=== PATIENT | male | born 1940 | race Caucasian/White ===

== ENCOUNTER 2019-12-03 12:37 | Inpatient (IN) | payer MEDICARE ==
[~2019-12-03] VITALS: Ht 165.1 cm; Wt 81.7 kg
[2019-12-03 12:37] VITALS: BP 160/61
[~2019-12-03 12:37] MED LIST: CAPOTEN50 MG; FLEXERIL10 MG PO; HYDROCODONE BIT1 T11 PO; KEFLEX500 MG PO; LOPRESSOR50 MG; LOVASTATIN20 MG; METFORMIN1000 MG; NOVOLIN 701 UNIT/0.0; [UNRECOGNIZED DRUG - OTHER]
--- NOTE | 2019-12-03 12:48 | NUR ---
PLACED ON 50% VENTURI MASK. WILL CONTINUE TO MONITOR.
[2019-12-03 12:55] LABS: ABG BASE EXCESS -1.4 mmol/L (-2.0-2.0); ARTERIAL BLOOD GAS PH 7.336 (7.35-7.45)
[2019-12-03 13:11] VITALS: BP 135/56
[2019-12-03 13:11] LABS: BASO # 0.1 10*3/uL (0.0-0.1); BASO % 0.7 % (0.0-1.0); EOS # 0.5 10*3/uL (0.0-0.4); EOS % 5.2 % (1.0-4.0); HEMATOCRIT 34.2 % (42.0-52.0); HEMOGLOBIN 10.3 g/dl (14.0-18.0); LYMPH # 0.6 10*3/uL (1.3-4.4); LYMPH % 6.6 % (27.0-41.0); MEAN CELL VOLUME 97.2 fl (80.0-94.0); MEAN CORPUSCULAR HGB 29.3 pg (27.0-31.0); MEAN CORPUSCULAR HGB CONC 30.1 g/dl (33.0-37.0); MEAN PLATELET VOLUME 10.6 fl (9.6-12.3); MONO # 0.5 10*3/uL (0.1-1.0); MONO % 5.6 % (3.0-9.0); NEUT # 7.9 10*3/uL (2.3-7.9); NEUT % 81.4 % (47.0-73.0); PLATELET COUNT AUTOMATED 265 10*3/uL (130-400); RED BLOOD COUNT 3.52 10*6/uL (4.50-5.90); RED CELL DISTRI WIDTH 13.9 % (0-14.5); WHITE BLOOD COUNT 9.7 10*3/uL (4.8-10.8)
--- NOTE | 2019-12-03 13:11 | NUR ---
RESTING IN NO DISTRESS. TOLERATING VENTURI MASK WELL. POX 95-96% A THIS TIME.
[2019-12-03 13:22] LABS: ACT PARTIAL THROMBO TIME 27.6 SECONDS (20.0-32.1)
[2019-12-03 13:28] LABS: ALBUMIN 3.3 gm/dl (3.1-4.5); CREATININE 1.86 mg/dL (0.70-1.30); POTASSIUM 5.9 mmol/L (3.5-5.1); TOTAL PROTEIN 6.9 gm/dL (6.4-8.2)
[2019-12-03 13:30] LABS: TROPONIN I 0.019 ng/ml (<0.045)
[2019-12-03 13:59] VITALS: BP 121/56
--- NOTE | 2019-12-03 14:01 | NUR ---
PARTIAL AMPUTATION TO LT FOOT. SEES WOUND CARE IN [place]. PT PREFERS DRESSING NOT BE REMOVED AT THIS TIME HE HAS AN "EXPENSIVE OINTMENT" THAT NEEDS TO BE APPLIED. STATES HIS DAUGHTER WOULD KNOW THE NAME OF THE MED.
[2019-12-03 15:00] VITALS: BP 139/63
--- NOTE | 2019-12-03 15:00 | NUR ---
Time: 1500 A 79 year old MALE admitted to 4E under services of TORY VAZQUEZ DO. Pt. arrived via bed from ER. Chief complaint: ACUTE RESPIRATORY FAILURE. PATIENT ORIENTED TO THE FLOOR 4E, PUBLIC BATH ATTENDANT APPLIED. PATIENT FORMS REVIEWED AND COMPLETED. CALL LIGHT SYSTEM DEMONSTRATED. ORDERS RECEIVED FROM DR. KANG. NOTIFIED THAT MED REC IS UP-TO-DATE. [place]
--- NOTE | 2019-12-03 15:17 | NUR ---
EVON SALAZAR [id number] Please refer to the physician's history and physical for past medical history, comorbid conditions, and allergies. Diagnosis: CHF ACUTE RESPIRATORY FAILURE WITH HYPOXIA AND Koko Score: , WOUND DESCRIPTIONS: Wound Number: 1 Location of the wound: LEFT DISTAL FOOT Type of wound: SURGICAL Thickness: Partial Size: 1.5cm X 3.5cm X 0.1cm Tunneling: NONE Undermining: NONE Sinus Tract: NONE Presence of Exudate: Serous Amount: Light Color: Red Odor: None Periwound Skin Appearance: Scar Wound edges: APPROXIMATED Pain (associated with wound): DENIED AT TIME OF ASSESSMENT How does patient state this happened? PATIENT STATES THAT HE HAS ALL TOES REMOVED FOUR MONTHS AGO BY [facility] IN [place]. PATIENT STATES THAT HE HAS AN APPOINTMENT 12/08/19 IN THE [place] OFFICE. PATIENT ALSO STATES THAT HE HAS [employer]. PATIENT STATES THAT HE HAS BEEN USING AN "OINTMENT" TO THE WOUND BUT UNSURE OF THE NAME. PATIENT STATES HE WILL ASK HIS DAUGHTER AND TELL THE NURSE CARING FOR HIM. If wound is on legs/feet or hands, capillary refill time, pulses, color temp, sensation: CAP REFILL < 3 SECONDS. PATIENT DENIED ANY OTHER OPEN WOUNDS AT TIME OF ASSESSMENT. Surface the patient is resting on: Isoflex SKIN PREVENTION RECOMMENDATION: 1. Pressure redistribution support surface as appropriate 2. Elevate heels 3. Remove boots/TEDS every shift and reapply 4. Head of bed 30 degrees as tolerated 5. Assess nutrition and hydration 6. Manage moisture 7. Avoid the use of containment devices while in bed 8. Use absorptive products on surfaces limit layers of linens on bed 9. Turn and reposition every 1-2 hours in bed and every 1 hour in chair as tolerated 10. Weight shifts every 15 minutes while up in chair 11. Offloading with pillows or device to keep heels elevated off bed 12. Monitor skin at least every shift 13. Inspect under medical devices twice a day WOUND TREATMENT RECOMMENDATIONS: DRESSING CHANGE: CLEANSES LEFT DISTAL FOOT WITH NSS APPLY SUREPREP AROUND THE WOUND ALLOW TO DRY APPLY ADAPTIC TO WOUND BED AND COVER WITH A DSD. CHANGE DAILY AND PRN SOILING. PATIENT TO FOLLOW UP WITH [facility] IN [place] 12/08/19. PATIENT REFUSED TO HAVE PODIATRY SEE HIM WHILE IN THE HOSPITAL.
--- NOTE | 2019-12-03 15:49 | NUR ---
MESSAGE FOR NEW CARDIOLOGY CONSULT GIVEN TO MOISÉS. PATIENT INFORMATION REVIEWED.
--- NOTE | 2019-12-03 15:50 | NUR ---
DR. GUERRERO NOTIFIED OF CONSULT. ORDERS RECEIVED. BIPAP WILL REMAIN ON CURRENT SETTINGS.
[2019-12-03 16:00] VITALS: BP 139/69
[2019-12-03 17:28] LABS: BILIRUBIN NEGATIVE (NEGATIVE); BLOOD 1+ (NEGATIVE); CLARITY CLEAR (CLEAR); COLOR YELLOW (YELLOW); GLUCOSE NEGATIVE (NEGATIVE); KETONE NEGATIVE (NEGATIVE); LEUKO ESTERASE NEGATIVE (NEGATIVE); NITRITE NEGATIVE (NEGATIVE); SPECIFIC GRAVITY 1.025 (1.005-1.030); UROBILINOGEN 0.2 E.U./dl (0.2-1.0)
[2019-12-03 17:31] LABS: ABG BASE EXCESS -0.5 mmol/L (-2.0-2.0); ARTERIAL BLOOD GAS PH 7.35 (7.35-7.45)
[2019-12-03 17:36] LABS: BACTERIA 1+; RBC 31-40 rbc/hpf (0-2)
[2019-12-03 19:02] LABS: CREATININE 1.79 mg/dL (0.70-1.30); POTASSIUM 5.4 mmol/L (3.5-5.1)
[2019-12-03 20:00] VITALS: BP 128/53
--- NOTE | 2019-12-03 22:13 | NUR ---
Patient changed to large sized Bi-PAP mask due to improper fit.
[2019-12-04] VITALS: BP 126/54
[2019-12-04 07:09] LABS: BASO # 0.1 10*3/uL (0.0-0.1); BASO % 0.6 % (0.0-1.0); EOS # 0.6 10*3/uL (0.0-0.4); EOS % 6.2 % (1.0-4.0); HEMATOCRIT 32.2 % (42.0-52.0); HEMOGLOBIN 9.6 g/dl (14.0-18.0); LYMPH # 1.2 10*3/uL (1.3-4.4); LYMPH % 12.2 % (27.0-41.0); MEAN CELL VOLUME 96.4 fl (80.0-94.0); MEAN CORPUSCULAR HGB 28.7 pg (27.0-31.0); MEAN CORPUSCULAR HGB CONC 29.8 g/dl (33.0-37.0); MEAN PLATELET VOLUME 10.9 fl (9.6-12.3); MONO # 0.8 10*3/uL (0.1-1.0); MONO % 8.5 % (3.0-9.0); NEUT # 6.8 10*3/uL (2.3-7.9); NEUT % 72.3 % (47.0-73.0); PLATELET COUNT AUTOMATED 236 10*3/uL (130-400); RED BLOOD COUNT 3.34 10*6/uL (4.50-5.90); RED CELL DISTRI WIDTH 13.9 % (0-14.5); WHITE BLOOD COUNT 9.5 10*3/uL (4.8-10.8)
[2019-12-04 07:27] LABS: CREATININE 1.7 mg/dL (0.70-1.30); POTASSIUM 4.9 mmol/L (3.5-5.1)
[2019-12-04 07:32] LABS: PHOSPHOROUS 3.5 mg/dL (2.5-4.9)
[2019-12-04 07:40] LABS: THYROID STIM HORMONE (HS) 2.11 uIU/ml (0.358-4.75)
[2019-12-04 08:00] VITALS: BP 128/62
[2019-12-04 08:44] LABS: VITAMIN D, 25-HYDROXY 26.8 ng/mL (30-100)
--- NOTE | 2019-12-04 09:00 | NUR ---
[employer] in to talk to patient. Patient states lives at home with family. There are no steps in the home. Physician: rachel erickson Pharmacy: Home health services: none Patient's level of ADLs: INDEPENDENT Patient has working utilities: all working DME: none Follow-up physician's appointment after d/c: will be made by hospitalist nurse director upon discharge Does patient want to access PORTAL?: no Discharge plan discussed with patient, he lives at home, is independent in adls and ambulation, he states he will return home when medically stable and denies any home needs. JEFF GOULD
[2019-12-04 12:00] VITALS: BP 140/66
[2019-12-04] MEDS ORDERED: FUROSEMIDE10 MG/1 M1 IV (12:02)
--- NOTE | 2019-12-04 12:08 | NUR ---
PATIENT TO TRANSFER TO [facility]
--- NOTE | 2019-12-04 12:59 | NUR ---
PATIENT DAUGHTER AWARE OF TRANSFER.
--- NOTE | 2019-12-04 13:10 | NUR ---
NURSE TO NURSE REPORT GIVEN TO EMERY TERRAZAS AT [facility]. AMBULANCE TO NON PROFIT FINANCIAL CONTROLLER AT 1330.
--- NOTE | 2019-12-04 13:17 | NUR ---
Nursing screen received and chart reviewed. Patient being transfered to [facility] for further care. Morenita Saul OTR/l
--- NOTE | 2019-12-04 13:30 | NUR ---
PATIENT TRANSFERED VIA AMBULANCE.
--- NOTE | 2019-12-04 13:39 | NUR ---
PHYSICAL THERAPY Screen recieved per H&P pt for transfer to another facility, if status changes and pt has a decline functional status please consult PT Silvia Kaye PT
== END 2019-12-04 13:30 | disposition short-term general hospital (02) | DRG 189 ==
LOC: ED 12:37 → EDHOLD 13:59 → 4E 14:40
PROVIDERS: Emergency Medicine; Internal Medicine; Internal Medicine Critical Care Medicine; ADMIT Internal Medicine
PROC: 5A09357 Assistance with Respiratory Ventilation, Less than 24 Consecutive Hours, Continuous Positive Airway Pressure (ICD-10-PCS; principal; 2019-12-03)
DX: J96.02 Acute respiratory failure with hypercapnia (principal); N17.0 Acute kidney failure with tubular necrosis; I50.33 Acute on chronic diastolic (congestive) heart failure; I13.0 Hypertensive heart and chronic kidney disease with heart failure and stage 1 through stage 4 chronic kidney disease, or unspecified chronic kidney disease; E87.2 Acidosis; J96.01 Acute respiratory failure with hypoxia; N18.9 Chronic kidney disease, unspecified; E11.22 Type 2 diabetes mellitus with diabetic chronic kidney disease; E87.5 Hyperkalemia; E83.41 Hypermagnesemia; E11.65 Type 2 diabetes mellitus with hyperglycemia; E11.51 Type 2 diabetes mellitus with diabetic peripheral angiopathy without gangrene; D53.9 Nutritional anemia, unspecified; E87.8 Other disorders of electrolyte and fluid balance, not elsewhere classified; J44.9 Chronic obstructive pulmonary disease, unspecified; E66.9 Obesity, unspecified; I25.10 Atherosclerotic heart disease of native coronary artery without angina pectoris; I48.0 Paroxysmal atrial fibrillation; I35.0 Nonrheumatic aortic (valve) stenosis; Z68.30 Body mass index [BMI] 30.0-30.9, adult; Z99.81 Dependence on supplemental oxygen; Z79.4 Long term (current) use of insulin; Z79.82 Long term (current) use of aspirin; Z79.899 Other long term (current) drug therapy; Z98.42 Cataract extraction status, left eye; Z98.41 Cataract extraction status, right eye; Z89.411 Acquired absence of right great toe; Z82.49 Family history of ischemic heart disease and other diseases of the circulatory system; Z83.3 Family history of diabetes mellitus

== ENCOUNTER 2020-04-04 23:25 | Inpatient (IN) | payer MEDICARE ==
[~2020-04-04] VITALS: Ht 165.1 cm; Wt 72.3 kg
[~2020-04-04 23:25] MED LIST changes: +ASPIR 8181 MG PO; -CAPOTEN50 MG; +CAPOTEN50 MG PO; +FUROSEMIDE10 MG/1 M1 IV; -LOVASTATIN20 MG; +LOVASTATIN20 MG PO; +METFORMIN HYDR500 MG PO; -METFORMIN1000 MG; -NOVOLIN 701 UNIT/0.0; +NOVOLIN 70100 UNIT/1 SC; -[UNRECOGNIZED DRUG - OTHER]
[2020-04-04 23:29] VITALS: BP 147/81
[2020-04-04 23:49] LABS: BASO # 0.1 10*3/uL (0.0-0.1); BASO % 1.2 % (0.0-1.0); EOS # 0.3 10*3/uL (0.0-0.4); EOS % 2.6 % (1.0-4.0); HEMATOCRIT 34.4 % (42.0-52.0); LYMPH % 8.5 % (27.0-41.0); MEAN CELL VOLUME 95.8 fl (80.0-94.0); MEAN CORPUSCULAR HGB CONC 30.2 g/dl (33.0-37.0); MEAN PLATELET VOLUME 9.4 fl (9.6-12.3); MONO # 0.8 10*3/uL (0.1-1.0); MONO % 6.9 % (3.0-9.0); NEUT # 9.1 10*3/uL (2.3-7.9); NEUT % 80.4 % (47.0-73.0); PLATELET COUNT AUTOMATED 394 10*3/uL (130-400); RED BLOOD COUNT 3.59 10*6/uL (4.50-5.90); RED CELL DISTRI WIDTH 15.5 % (0-14.5); WHITE BLOOD COUNT 11.4 10*3/uL (4.8-10.8)
[2020-04-04 23:59] LABS: ACT PARTIAL THROMBO TIME 27.9 SECONDS (20.0-32.1)
[2020-04-05] VITALS (8 sets, daily range): BP systolic 113–147; BP diastolic 52–75
[2020-04-05 00:09] LABS: ALBUMIN 3.1 gm/dl (3.1-4.5); CREATININE 2.09 mg/dL (0.70-1.30); TOTAL PROTEIN 7.4 gm/dL (6.4-8.2)
[2020-04-05 00:13] LABS: TROPONIN I 0.432 ng/ml (<0.045)
[2020-04-05 02:14] LABS: ARTERIAL BLOOD GAS PH 7.348 (7.35-7.45)
[2020-04-05 06:29] LABS: BASO # 0.1 10*3/uL (0.0-0.1); BASO % 0.8 % (0.0-1.0); EOS # 0.1 10*3/uL (0.0-0.4); EOS % 0.7 % (1.0-4.0); HEMATOCRIT 30.9 % (42.0-52.0); LYMPH # 1.4 10*3/uL (1.3-4.4); LYMPH % 14.1 % (27.0-41.0); MEAN CELL VOLUME 93.6 fl (80.0-94.0); MEAN CORPUSCULAR HGB 29.4 pg (27.0-31.0); MEAN CORPUSCULAR HGB CONC 31.4 g/dl (33.0-37.0); MEAN PLATELET VOLUME 8.9 fl (9.6-12.3); MONO # 0.7 10*3/uL (0.1-1.0); MONO % 7.5 % (3.0-9.0); NEUT # 7.3 10*3/uL (2.3-7.9); NEUT % 76.5 % (47.0-73.0); PLATELET COUNT AUTOMATED 300 10*3/uL (130-400); RED CELL DISTRI WIDTH 15.5 % (0-14.5); WHITE BLOOD COUNT 9.6 10*3/uL (4.8-10.8)
[2020-04-05 06:59] LABS: CREATININE 1.88 mg/dL (0.70-1.30); POTASSIUM 4.7 mmol/L (3.5-5.1)
[2020-04-05 07:06] LABS: FREE T4 0.86 ng/dl (0.76-1.46); THYROID STIM HORMONE (HS) 1.5 uIU/ml (0.358-4.75)
[2020-04-05] MEDS ORDERED: HUMULIN 70/30 703 M1 SC (08:07)
[2020-04-05] MEDS ORDERED: NORVASC5 MG PO (08:08)
[2020-04-05] MEDS ORDERED: CARVEDILOL3.125 MG PO (08:09)
[2020-04-05] MEDS ORDERED: LASIX20 MG PO (08:09)
[2020-04-06] VITALS: BP 118/64
[2020-04-06 04:00] VITALS: BP 156/82
[2020-04-06 06:09] LABS: BASO # 0.1 10*3/uL (0.0-0.1); BASO % 0.7 % (0.0-1.0); EOS # 0.7 10*3/uL (0.0-0.4); EOS % 7.8 % (1.0-4.0); HEMATOCRIT 30.5 % (42.0-52.0); LYMPH # 1.3 10*3/uL (1.3-4.4); LYMPH % 14.2 % (27.0-41.0); MEAN CELL VOLUME 92.7 fl (80.0-94.0); MEAN CORPUSCULAR HGB 28.9 pg (27.0-31.0); MEAN CORPUSCULAR HGB CONC 31.1 g/dl (33.0-37.0); MEAN PLATELET VOLUME 9.5 fl (9.6-12.3); MONO # 0.8 10*3/uL (0.1-1.0); MONO % 8.8 % (3.0-9.0); NEUT # 6.2 10*3/uL (2.3-7.9); NEUT % 68.2 % (47.0-73.0); PLATELET COUNT AUTOMATED 317 10*3/uL (130-400); RED BLOOD COUNT 3.29 10*6/uL (4.50-5.90); RED CELL DISTRI WIDTH 15.5 % (0-14.5); WHITE BLOOD COUNT 9.1 10*3/uL (4.8-10.8)
[2020-04-06 06:27] LABS: CREATININE 1.61 mg/dL (0.70-1.30); POTASSIUM 4.3 mmol/L (3.5-5.1)
[2020-04-06 08:00] VITALS: BP 90/42
[2020-04-06 12:00] VITALS: BP 92/50
[2020-04-06 20:00] VITALS: BP 134/65
[2020-04-07] VITALS: BP 136/64
[2020-04-07 04:00] VITALS: BP 128/60
[2020-04-07 06:00] LABS: BASO # 0.1 10*3/uL (0.0-0.1); BASO % 0.8 % (0.0-1.0); EOS # 0.7 10*3/uL (0.0-0.4); EOS % 7.8 % (1.0-4.0); HEMATOCRIT 28.1 % (42.0-52.0); LYMPH # 1.3 10*3/uL (1.3-4.4); LYMPH % 15.7 % (27.0-41.0); MEAN CELL VOLUME 93.7 fl (80.0-94.0); MEAN CORPUSCULAR HGB 29.3 pg (27.0-31.0); MEAN CORPUSCULAR HGB CONC 31.3 g/dl (33.0-37.0); MEAN PLATELET VOLUME 9.7 fl (9.6-12.3); MONO # 0.9 10*3/uL (0.1-1.0); MONO % 10.9 % (3.0-9.0); NEUT # 5.5 10*3/uL (2.3-7.9); NEUT % 64.4 % (47.0-73.0); PLATELET COUNT AUTOMATED 285 10*3/uL (130-400); RED CELL DISTRI WIDTH 15.7 % (0-14.5); WHITE BLOOD COUNT 8.5 10*3/uL (4.8-10.8)
[2020-04-07 06:33] LABS: CREATININE 1.57 mg/dL (0.70-1.30); POTASSIUM 4.4 mmol/L (3.5-5.1)
[2020-04-07 08:00] VITALS: BP 132/65
[2020-04-07 12:00] VITALS: BP 118/62
[2020-04-07 16:00] VITALS: BP 105/64; BP 140/70
[2020-04-07 20:00] VITALS: BP 133/72
[2020-04-08] VITALS: BP 114/51
[2020-04-08 06:53] LABS: BASO # 0.1 10*3/uL (0.0-0.1); BASO % 0.7 % (0.0-1.0); EOS # 0.7 10*3/uL (0.0-0.4); EOS % 7.5 % (1.0-4.0); HEMATOCRIT 31.5 % (42.0-52.0); LYMPH # 1.5 10*3/uL (1.3-4.4); LYMPH % 16.9 % (27.0-41.0); MEAN CELL VOLUME 94.3 fl (80.0-94.0); MEAN CORPUSCULAR HGB 28.7 pg (27.0-31.0); MEAN CORPUSCULAR HGB CONC 30.5 g/dl (33.0-37.0); MEAN PLATELET VOLUME 9.8 fl (9.6-12.3); MONO % 11.3 % (3.0-9.0); NEUT # 5.5 10*3/uL (2.3-7.9); NEUT % 63.4 % (47.0-73.0); PLATELET COUNT AUTOMATED 283 10*3/uL (130-400); RED BLOOD COUNT 3.34 10*6/uL (4.50-5.90); RED CELL DISTRI WIDTH 15.4 % (0-14.5); WHITE BLOOD COUNT 8.7 10*3/uL (4.8-10.8)
[2020-04-08 07:25] LABS: CREATININE 1.41 mg/dL (0.70-1.30); POTASSIUM 4.2 mmol/L (3.5-5.1)
[2020-04-08 08:00] VITALS: BP 140/64
[2020-04-08 12:00] VITALS: BP 142/66
[2020-04-08] MEDS ORDERED: APRESOLINE10 MG PO (12:13)
[2020-04-08] MEDS ORDERED: Isordil20 MG PO (12:13)
== END 2020-04-08 15:10 | disposition home health service (06) | DRG 280 ==
LOC: ED 23:25 → ICCU 04-05 00:50 → EDHOLD 04-05 00:50 → ICCU 04-05 01:05 → 4E 04-07 14:47
PROVIDERS: Emergency Medicine; Internal Medicine; ADMIT Family Medicine
PROC: 5A09357 Assistance with Respiratory Ventilation, Less than 24 Consecutive Hours, Continuous Positive Airway Pressure (ICD-10-PCS; principal; 2020-04-05)
PROC: 5A09357 Assistance with Respiratory Ventilation, Less than 24 Consecutive Hours, Continuous Positive Airway Pressure (ICD-10-PCS; 2020-04-06)
PROC: 5A09357 Assistance with Respiratory Ventilation, Less than 24 Consecutive Hours, Continuous Positive Airway Pressure (ICD-10-PCS; 2020-04-07)
DX: I21.4 Non-ST elevation (NSTEMI) myocardial infarction (principal); N17.0 Acute kidney failure with tubular necrosis; J96.21 Acute and chronic respiratory failure with hypoxia; I50.43 Acute on chronic combined systolic (congestive) and diastolic (congestive) heart failure; I13.0 Hypertensive heart and chronic kidney disease with heart failure and stage 1 through stage 4 chronic kidney disease, or unspecified chronic kidney disease; R65.10 Systemic inflammatory response syndrome (SIRS) of non-infectious origin without acute organ dysfunction; I44.7 Left bundle-branch block, unspecified; E83.41 Hypermagnesemia; I44.0 Atrioventricular block, first degree; D53.9 Nutritional anemia, unspecified; I35.0 Nonrheumatic aortic (valve) stenosis; N18.3 Chronic kidney disease, stage 3 (moderate); G89.29 Other chronic pain; I25.10 Atherosclerotic heart disease of native coronary artery without angina pectoris; I48.0 Paroxysmal atrial fibrillation; E11.65 Type 2 diabetes mellitus with hyperglycemia; E11.51 Type 2 diabetes mellitus with diabetic peripheral angiopathy without gangrene; E11.22 Type 2 diabetes mellitus with diabetic chronic kidney disease; E66.3 Overweight; I25.5 Ischemic cardiomyopathy; Z79.4 Long term (current) use of insulin; Z87.891 Personal history of nicotine dependence; Z82.49 Family history of ischemic heart disease and other diseases of the circulatory system; Z83.3 Family history of diabetes mellitus; Z79.899 Other long term (current) drug therapy; Z79.82 Long term (current) use of aspirin; Z68.26 Body mass index [BMI] 26.0-26.9, adult

== ENCOUNTER 2020-04-19 20:34 | Observation (INO) | payer MEDICARE ==
[~2020-04-19] VITALS: Ht 165.1 cm; Wt 73.6 kg
[~2020-04-19 20:34] MED LIST changes: +APRESOLINE10 MG PO; +CARVEDILOL3.125 MG PO; +HUMULIN 70/30 703 M1 SC; +Isordil20 MG PO; +LASIX20 MG PO; +NORVASC5 MG PO
[2020-04-19 20:35] VITALS: BP 131/62
[2020-04-19 21:05] LABS: BASO # 0.1 10*3/uL (0.0-0.1); BASO % 0.6 % (0.0-1.0); EOS # 0.3 10*3/uL (0.0-0.4); EOS % 2.7 % (1.0-4.0); HEMATOCRIT 30.2 % (42.0-52.0); LYMPH # 0.7 10*3/uL (1.3-4.4); LYMPH % 5.9 % (27.0-41.0); MEAN CELL VOLUME 92.1 fl (80.0-94.0); MEAN CORPUSCULAR HGB CONC 31.5 g/dl (33.0-37.0); MEAN PLATELET VOLUME 9.2 fl (9.6-12.3); MONO # 1.1 10*3/uL (0.1-1.0); MONO % 9.3 % (3.0-9.0); NEUT # 9.8 10*3/uL (2.3-7.9); NEUT % 81.2 % (47.0-73.0); PLATELET COUNT AUTOMATED 388 10*3/uL (130-400); RED BLOOD COUNT 3.28 10*6/uL (4.50-5.90); RED CELL DISTRI WIDTH 14.9 % (0-14.5); WHITE BLOOD COUNT 12.1 10*3/uL (4.8-10.8)
[2020-04-19 21:30] LABS: ALBUMIN 2.6 gm/dl (3.1-4.5); CREATININE 2.19 mg/dL (0.70-1.30); POTASSIUM 3.5 mmol/L (3.5-5.1); TOTAL PROTEIN 7.1 gm/dL (6.4-8.2)
[2020-04-20 02:00] VITALS: BP 141/70
[2020-04-20 04:24] LABS: BASO # 0.1 10*3/uL (0.0-0.1); BASO % 0.6 % (0.0-1.0); EOS # 0.1 10*3/uL (0.0-0.4); EOS % 1.1 % (1.0-4.0); HEMATOCRIT 29.4 % (42.0-52.0); LYMPH # 0.8 10*3/uL (1.3-4.4); LYMPH % 8.4 % (27.0-41.0); MEAN CELL VOLUME 91.6 fl (80.0-94.0); MEAN CORPUSCULAR HGB 28.7 pg (27.0-31.0); MEAN CORPUSCULAR HGB CONC 31.3 g/dl (33.0-37.0); MEAN PLATELET VOLUME 9.2 fl (9.6-12.3); MONO # 0.8 10*3/uL (0.1-1.0); MONO % 7.8 % (3.0-9.0); NEUT # 7.9 10*3/uL (2.3-7.9); NEUT % 81.8 % (47.0-73.0); PLATELET COUNT AUTOMATED 340 10*3/uL (130-400); RED BLOOD COUNT 3.21 10*6/uL (4.50-5.90); RED CELL DISTRI WIDTH 14.9 % (0-14.5); WHITE BLOOD COUNT 9.7 10*3/uL (4.8-10.8)
[2020-04-20 04:40] LABS: ALBUMIN 2.4 gm/dl (3.1-4.5); CREATININE 1.89 mg/dL (0.70-1.30); POTASSIUM 4.4 mmol/L (3.5-5.1); TOTAL PROTEIN 6.3 gm/dL (6.4-8.2)
[2020-04-20 04:42] LABS: TROPONIN I 0.314 ng/ml (<0.045)
[2020-04-20] MEDS ORDERED: ISOSORBIDE DINI20 MG PO (07:39)
[2020-04-20] MEDS ORDERED: APRESOLINE10 MG PO (07:39)
[2020-04-20] MEDS ORDERED: IMDUR SA60 M1 PO (07:39)
[2020-04-20] MEDS ORDERED: NORVASC5 MG PO (07:40)
[2020-04-20] MEDS ORDERED: ATORVASTATIN CA20 M1 PO (07:40)
[2020-04-20] MEDS ORDERED: HEARTBURN RELIE20 MG PO (07:41)
[2020-04-20] MEDS ORDERED: LASIX40 MG PO (07:41)
[2020-04-20] MEDS ORDERED: IMDUR SA30 MG PO (07:42)
[2020-04-20] MEDS ORDERED: GLUCOPHAGE1000 MG PO (07:43)
[2020-04-20 08:00] VITALS: BP 136/60
[2020-04-20] MEDS ORDERED: HUMULIN 70/30 703 M1 SQ ×2 (08:38→08:39)
[2020-04-20 12:00] VITALS: BP 128/63
== END 2020-04-20 17:12 | disposition home or self-care (01) ==
LOC: ED 20:34 → 4E 04-20 00:34 → EDHOLD 04-20 00:34 → 4E 04-20 01:56
PROVIDERS: Nurse Practitioner Family; Student in an Organized Health Care Education/Training Program; ADMIT Family Medicine
DX: E11.649 Type 2 diabetes mellitus with hypoglycemia without coma (principal); E43 Unspecified severe protein-calorie malnutrition; Z79.4 Long term (current) use of insulin; D64.9 Anemia, unspecified; I73.9 Peripheral vascular disease, unspecified; I35.0 Nonrheumatic aortic (valve) stenosis; N18.9 Chronic kidney disease, unspecified; I50.9 Heart failure, unspecified; I44.7 Left bundle-branch block, unspecified; Z98.890 Other specified postprocedural states

== ENCOUNTER 2020-06-09 09:28 | Inpatient (IN) | payer MEDICARE ==
[~2020-06-09] VITALS: Ht 165.1 cm; Wt 84.4 kg
[~2020-06-09 09:28] MED LIST changes: +ATORVASTATIN CA20 M1 PO; +GLUCOPHAGE1000 MG PO; +HEARTBURN RELIE20 MG PO; +HUMULIN 70/30 703 M1 SQ; +IMDUR SA30 MG PO; +IMDUR SA60 M1 PO; +ISOSORBIDE DINI20 MG PO; +LASIX40 MG PO
[2020-06-09 09:35] VITALS: BP 147/63
[2020-06-09 09:53] LABS: BASO # 0.1 10*3/uL (0.0-0.1); BASO % 0.8 % (0.0-1.0); EOS # 0.4 10*3/uL (0.0-0.4); EOS % 4.6 % (1.0-4.0); HEMATOCRIT 33.9 % (42.0-52.0); LYMPH # 0.8 10*3/uL (1.3-4.4); LYMPH % 8.4 % (27.0-41.0); MEAN CELL VOLUME 93.1 fl (80.0-94.0); MEAN CORPUSCULAR HGB 27.7 pg (27.0-31.0); MEAN CORPUSCULAR HGB CONC 29.8 g/dl (33.0-37.0); MEAN PLATELET VOLUME 9.2 fl (9.6-12.3); MONO # 0.7 10*3/uL (0.1-1.0); MONO % 7.8 % (3.0-9.0); NEUT % 78.1 % (47.0-73.0); PLATELET COUNT AUTOMATED 305 10*3/uL (130-400); RED BLOOD COUNT 3.64 10*6/uL (4.50-5.90); RED CELL DISTRI WIDTH 15.9 % (0-14.5); WHITE BLOOD COUNT 8.9 10*3/uL (4.8-10.8)
[2020-06-09 10:04] LABS: ACT PARTIAL THROMBO TIME 28.5 SECONDS (20.0-32.1)
[2020-06-09 10:16] LABS: ALBUMIN 2.8 gm/dl (3.1-4.5); CREATININE 2.06 mg/dL (0.70-1.30); POTASSIUM 4.1 mmol/L (3.5-5.1); TOTAL PROTEIN 6.8 gm/dL (6.4-8.2)
[2020-06-09 10:23] LABS: TROPONIN I 0.053 ng/ml (<0.045)
--- NOTE | 2020-06-09 11:30 | NUR ---
PATIENT GIVEN ADORE CRACKERS AND PEANUT BUTTER AND ORANGE JUICE.
[2020-06-09 11:40] VITALS: BP 143/48
--- NOTE | 2020-06-09 12:03 | NUR ---
WOUNDS MEASURED AND PICTURES TAKEN BY [facility] NURSE.
[2020-06-09 12:11] VITALS: BP 138/47
[2020-06-09 12:22] VITALS: BP 140/72
--- NOTE | 2020-06-09 12:22 | NUR ---
A 79, admitted to 5E, under the services of KEYUR Hankins DO with a diagnosis of HYPOGLYCEMIA. Chief complaint is LOW BLOOD SUGAR. Patient arrived via bed from ER. Monitor applied. Initial assessment completed. Vital signs taken and recorded. KEYUR HANKINS DO notified of admission to the unit. Orders received. See assessment for past medical history, medications and allergies. Patient and/or family oriented to unit. visitation policy reviewed. Clothing/patient valuable form completed. RENNY LOZANO
[2020-06-09] MEDS ORDERED: IRON325 M1 PO (12:41)
[2020-06-09] MEDS ORDERED: COREG12.5 M1 PO (12:41)
[2020-06-09] MEDS ORDERED: VITAMIN D350 MCG PO (12:42)
--- NOTE | 2020-06-09 12:42 | NUR ---
PATIENT TAKEN TO 5TH FLOOR BY THIS NURSE. NO CHANGE IN STATUS. REPORT GIVEN TO RENNY TERRAZAS THATS WITH MARILEE TERRAZAS.
[2020-06-09] MEDS ORDERED: BASAG SOL SC (12:44)
[2020-06-09] MEDS ORDERED: HUMALOG100 UNIT/2 SC (12:45)
[2020-06-09 16:00] VITALS: BP 126/48
[2020-06-09 16:56] LABS: BILIRUBIN NEGATIVE (NEGATIVE); BLOOD TRACE-INTACT (NEGATIVE); CLARITY CLEAR (CLEAR); COLOR YELLOW (YELLOW); GLUCOSE NEGATIVE (NEGATIVE); KETONE NEGATIVE (NEGATIVE); LEUKO ESTERASE NEGATIVE (NEGATIVE); NITRITE NEGATIVE (NEGATIVE); UROBILINOGEN 0.2 E.U./dl (0.2-1.0)
[2020-06-09 17:01] LABS: BACTERIA TRACE; EPITHELIAL CELLS 0-2
[2020-06-09 17:03] LABS: HYALINE CAST TNTC
--- NOTE | 2020-06-09 17:15 | NUR ---
Spoke with Dr. Ochoa regarding if orders for BSG would be place in. Notified that BSG was 229 earlier at 430.
--- NOTE | 2020-06-09 17:16 | NUR ---
Asept drainage system kit obtained from US and taken into pt room. Pt states he doesn't believe this it the correct kit for his brand of pleural drain. States they had ordered some for him prior that was called pleurx brand. States his drain will only fit into these. I spoke with nursing supervisor beet end regarding this and she states she will see if we have. States this sounds familiar of a pt who was recently in [facility]. States she will call them.
--- NOTE | 2020-06-09 17:51 | NUR ---
Obtained pleurx drainage collection container and 600 cc of serousanguinous drainage obtained.
[2020-06-09 20:00] VITALS: BP 133/44
--- NOTE | 2020-06-09 21:22 | NUR ---
PT MEDICATED WITH PRN NORCO FOR C/O RIGHT SIDED BACK PAIN RATED A 10/10. WILL MONITOR FOR EFFECTIVENESS.
--- NOTE | 2020-06-09 22:00 | NUR ---
PT ASLEEP IN BED AT THIS TIME. PRN NORCO EFFECTIVE.
[2020-06-10] VITALS: BP 108/55
--- NOTE | 2020-06-10 02:52 | NUR ---
PT MEDICATED WITH PRN NORCO FOR C/O RIGHT SHOULDER PAIN RATED A 10/10. WILL MONITOR FOR EFFECTIVENESS.
[2020-06-10 07:07] LABS: ALBUMIN 2.3 gm/dl (3.1-4.5); CREATININE 2.08 mg/dL (0.70-1.30); POTASSIUM 4.9 mmol/L (3.5-5.1)
[2020-06-10 07:10] LABS: BASO # 0.1 10*3/uL (0.0-0.1); BASO % 0.9 % (0.0-1.0); EOS # 0.5 10*3/uL (0.0-0.4); EOS % 6.3 % (1.0-4.0); HEMATOCRIT 29.5 % (42.0-52.0); LYMPH # 0.9 10*3/uL (1.3-4.4); LYMPH % 11.5 % (27.0-41.0); MEAN CELL VOLUME 93.7 fl (80.0-94.0); MEAN CORPUSCULAR HGB 28.3 pg (27.0-31.0); MEAN CORPUSCULAR HGB CONC 30.2 g/dl (33.0-37.0); MEAN PLATELET VOLUME 9.6 fl (9.6-12.3); MONO # 0.6 10*3/uL (0.1-1.0); MONO % 8.3 % (3.0-9.0); NEUT # 5.6 10*3/uL (2.3-7.9); NEUT % 72.7 % (47.0-73.0); PLATELET COUNT AUTOMATED 266 10*3/uL (130-400); RED BLOOD COUNT 3.15 10*6/uL (4.50-5.90); RED CELL DISTRI WIDTH 16.2 % (0-14.5); WHITE BLOOD COUNT 7.7 10*3/uL (4.8-10.8)
[2020-06-10 07:13] LABS: FREE T4 0.98 ng/dl (0.76-1.46); THYROID STIM HORMONE (HS) 3.15 uIU/ml (0.358-4.75)
[2020-06-10 08:00] VITALS: BP 118/61; BP 120/70
--- NOTE | 2020-06-10 09:00 | NUR ---
case management attempted to visit with patient, podiatry staff visiting at this time, will see at a later time
--- NOTE | 2020-06-10 09:05 | NUR ---
Occupational Therapy evaluation completed on five with full evaluation to follow. Recommend occupational therapy per plan of care and SNF upon discharge. Thank you for this referral. Deysi Sher OTR/L
--- NOTE | 2020-06-10 10:16 | NUR ---
Nutritional Support Services Note: Discussing with pt hypoglycemic reactions. Encourged him to eat more protein and to make sure he has his snack at night. He states he normally does, he thinks he just forgot. Diet copies given to pt. Encouraged him to have snacks readily available and even by his bed in case he feels his blood sugar dropping. Pt was very receptive to teaching. Has a good understanding, just seems toget forgetful. He states he has a sore on his foot, but declined any type of supplement. Again encouraged adequate protein and calories. Will follow if needed. Kira Robles Rdn Ld
--- NOTE | 2020-06-10 10:42 | NUR ---
PHYSICAL THERAPY Physical Therapy evaluation completed on 5th floor with full evaluation to follow. Recommend physical therapy per plan of care and SNF upon discharge however pt refusing any rehab or HH PT/OT. Pt was agreeable to supportive services spoke with case management and will speak with patient. Thank you for this referral. Silvia Kaye PT
--- NOTE | 2020-06-10 11:26 | NUR ---
Dr. Flowers in with residents to examined pt. Waiting on pt to have US that were ordered this am.
[2020-06-10 12:00] VITALS: BP 102/60
--- NOTE | 2020-06-10 12:43 | NUR ---
District Branch Manager in to talk to patient. Patient states lives at home with alone. There are 4 steps in the home. Physician: irene oneil [facility] Patient's level of ADLs: INDEPENDENT Patient has working utilities: all working DME: cane, home oxygen he uses prn, nebulizer, stairlift Follow-up physician's appointment after d/c: no Does patient want to access PORTAL?: no Discharge plan discussed with patient, he states he lives at home alone, he is independent in adls and ambulation, he has a cane to use if needed, drives, he currently has [facility] and would like to resume their services when he is discharged, he also asked about meals on wheels, information given to patient regarding this, patient denies any other needs at this time, case management will follow. JEFF GOULD
--- NOTE | 2020-06-10 14:45 | NUR ---
Obtained 400 cc of serousanguinous drainage from pleurx drain, dressing changes site asymptomatic.
--- NOTE | 2020-06-10 14:57 | NUR ---
Spoke with US states they will probably be up to get pt in about a hour or so. Pt updated.
--- NOTE | 2020-06-10 15:14 | NUR ---
MANUFACTURING APPLICATIONS ENGINEER FAXED HOME HEALTH ORDER TO [facility]. PER ANTHONY THEY WILL BE ABLE TO SEE THE PATIENT SATURDAY IF HE WERE TO DISCHARGE TOMORROW.
--- NOTE | 2020-06-10 15:24 | NUR ---
Transport here to take pt to [facility].
[2020-06-10 16:00] VITALS: BP 121/64
--- NOTE | 2020-06-10 17:02 | NUR ---
Pt returned from [facility]. BSG was checked and it was 49 x2. Pt is asymptomatic and is talking on the phone at this time. D50 given but pt refused further D50 after 1/2 amp had been administered.
--- NOTE | 2020-06-10 17:43 | NUR ---
Notified Dr. Parker that bsg ws 49 and that 1/2 amp of D50 was given and then pt dinner tray also arrived. Notified pt was asymptomatic and requested no more D50 be given after 1/2 amp. States to recheck after pt is done eating meal.
--- NOTE | 2020-06-10 17:57 | NUR ---
BSG was 110 after 1/2 amp D50 and finished 100% on his meal.
--- NOTE | 2020-06-10 18:04 | NUR ---
Dressings reapplied to rt leg and rt foot after pt had US. Dressing applied to left buttucks per orders as well. Pt states he doesn't want left leg wrapped as they are all scabbed. States he will take ointment. Applied at this time per orders from podiatry and then wound care. See orders.
--- NOTE | 2020-06-10 19:32 | NUR ---
24 HR CHART CHECK COMPLETE.
[2020-06-10 20:00] VITALS: BP 99/55
[2020-06-11] VITALS: BP 93/55
[2020-06-11 06:51] LABS: BASO # 0.1 10*3/uL (0.0-0.1); BASO % 1.1 % (0.0-1.0); EOS # 0.7 10*3/uL (0.0-0.4); EOS % 9.3 % (1.0-4.0); HEMATOCRIT 29.4 % (42.0-52.0); LYMPH # 0.9 10*3/uL (1.3-4.4); LYMPH % 12.9 % (27.0-41.0); MEAN CELL VOLUME 93.3 fl (80.0-94.0); MEAN CORPUSCULAR HGB 28.3 pg (27.0-31.0); MEAN CORPUSCULAR HGB CONC 30.3 g/dl (33.0-37.0); MEAN PLATELET VOLUME 9.4 fl (9.6-12.3); MONO # 0.7 10*3/uL (0.1-1.0); MONO % 9.4 % (3.0-9.0); NEUT # 4.7 10*3/uL (2.3-7.9); NEUT % 67.2 % (47.0-73.0); PLATELET COUNT AUTOMATED 253 10*3/uL (130-400); RED BLOOD COUNT 3.15 10*6/uL (4.50-5.90); RED CELL DISTRI WIDTH 16.3 % (0-14.5)
[2020-06-11 07:05] LABS: CREATININE 2.04 mg/dL (0.70-1.30); POTASSIUM 4.6 mmol/L (3.5-5.1)
[2020-06-11 08:00] VITALS: BP 104/78
[2020-06-11] MEDS ORDERED: VICTOZA 2-0.6 MG/0.1 SC (11:29)
[2020-06-11] MEDS ORDERED: Lantus SC (11:29)
--- NOTE | 2020-06-11 12:33 | NUR ---
PT IN A HUGE HURRY TO BE DC'D. ATTEMPTED TO CHANGE WOUND DRESSINGS AND DRAIN PLEUEX DRAIN. PT REFUSED TO HAVE WOUND PHOTOS TAKEN , ALSO PT REFUSED TO HAVE DRAIN DRAINED. STATES " I HAVE TO GO , MY RIDE IS HERE FORGET IT "
--- NOTE | 2020-06-11 12:36 | NUR ---
Discharge instructions reviewed with patient/family. Patient receptive and verbalizes understanding. Follow-up care arranged. Written instructions given to patient/family. JAVI HAMMER
== END 2020-06-11 12:49 | disposition home health service (06) | DRG 637 ==
LOC: ED 09:28 → 5E 11:21 → EDHOLD 11:21 → 5E 11:56
PROVIDERS: Emergency Medicine; Internal Medicine; ADMIT Internal Medicine; ATTEND Internal Medicine
DX: E11.649 Type 2 diabetes mellitus with hypoglycemia without coma (principal); G93.41 Metabolic encephalopathy; I50.21 Acute systolic (congestive) heart failure; I13.0 Hypertensive heart and chronic kidney disease with heart failure and stage 1 through stage 4 chronic kidney disease, or unspecified chronic kidney disease; E44.0 Moderate protein-calorie malnutrition; J90 Pleural effusion, not elsewhere classified; N17.0 Acute kidney failure with tubular necrosis; N18.9 Chronic kidney disease, unspecified; E66.3 Overweight; E11.51 Type 2 diabetes mellitus with diabetic peripheral angiopathy without gangrene; G89.29 Other chronic pain; E11.22 Type 2 diabetes mellitus with diabetic chronic kidney disease; R79.82 Elevated C-reactive protein (CRP); E83.41 Hypermagnesemia; S81.002A Unspecified open wound, left knee, initial encounter; S81.001A Unspecified open wound, right knee, initial encounter; X58.XXXA Exposure to other specified factors, initial encounter; E87.8 Other disorders of electrolyte and fluid balance, not elsewhere classified; S91.109A Unspecified open wound of unspecified toe(s) without damage to nail, initial encounter; Z79.4 Long term (current) use of insulin; Z68.29 Body mass index [BMI] 29.0-29.9, adult; I25.2 Old myocardial infarction; Z82.49 Family history of ischemic heart disease and other diseases of the circulatory system; Z83.3 Family history of diabetes mellitus

== ENCOUNTER → 2020-07-13 | Outpatient (CLI) | payer MEDICARE ==
[~2020-07-13] MED LIST changes: +BASAG SOL SC; +COREG12.5 M1 PO; +HUMALOG100 UNIT/2 SC; +IRON325 M1 PO; +Lantus SC; +VICTOZA 2-0.6 MG/0.1 SC; +VITAMIN D350 MCG PO
== END | disposition home or self-care (01) ==
LOC: RESCLI 08:51
PROVIDERS: ATTEND Student in an Organized Health Care Education/Training Program
DX: I10 Essential (primary) hypertension (principal); E55.9 Vitamin D deficiency, unspecified; I25.10 Atherosclerotic heart disease of native coronary artery without angina pectoris; I65.29 Occlusion and stenosis of unspecified carotid artery; L97.511 Non-pressure chronic ulcer of other part of right foot limited to breakdown of skin; M54.5 Low back pain; N19 Unspecified kidney failure; E78.00 Pure hypercholesterolemia, unspecified; I73.9 Peripheral vascular disease, unspecified; M19.90 Unspecified osteoarthritis, unspecified site; I50.22 Chronic systolic (congestive) heart failure; D50.8 Other iron deficiency anemias; E11.59 Type 2 diabetes mellitus with other circulatory complications; E11.8 Type 2 diabetes mellitus with unspecified complications; K21.9 Gastro-esophageal reflux disease without esophagitis; S98 Traumatic amputation of ankle and foot; Z74.9 Problem related to care provider dependency, unspecified; Z79.82 Long term (current) use of aspirin; Z79.899 Other long term (current) drug therapy; Z88.8 Allergy status to other drugs, medicaments and biological substances; Z95.818 Presence of other cardiac implants and grafts; Z98.890 Other specified postprocedural states; X58.XXXA Exposure to other specified factors, initial encounter; Y93.89 Activity, other specified; Y92.89 Other specified places as the place of occurrence of the external cause; Y99.8 Other external cause status

== ENCOUNTER 2020-08-03 09:20 | Emergency (ER) | payer MEDICARE ==
[~2020-08-03] VITALS: Ht 167.6 cm; Wt 79.4 kg
== END 2020-08-03 17:30 | disposition expired ==
LOC: ED 09:23
DX: I46.9 Cardiac arrest, cause unspecified (principal); I13.0 Hypertensive heart and chronic kidney disease with heart failure and stage 1 through stage 4 chronic kidney disease, or unspecified chronic kidney disease; E11.22 Type 2 diabetes mellitus with diabetic chronic kidney disease; N18.9 Chronic kidney disease, unspecified; Z79.899 Other long term (current) drug therapy; Z79.82 Long term (current) use of aspirin; Z79.4 Long term (current) use of insulin; Z87.891 Personal history of nicotine dependence